=== PATIENT | female | born 1970 | race Caucasian/White ===

== ENCOUNTER → 2020-11-09 | Outpatient (CLI) | payer MEDICARE, OTHER ==
[~2020-11-09] MED LIST: IBUPROFEN600 MG PO
== END ==
LOC: CT 09:54
DX: C53.9 Malignant neoplasm of cervix uteri, unspecified (principal); K80.20 Calculus of gallbladder without cholecystitis without obstruction
CPT/HCPCS: 71260; Q9967

== ENCOUNTER → 2020-12-18 | Outpatient (CLI) | payer MEDICARE, OTHER | LOC: KOH-I 14:11 | DX: D44.0 Neoplasm of uncertain behavior of thyroid gland (principal) | CPT/HCPCS: 76536 ==

== ENCOUNTER → 2021-04-10 | Outpatient (CLI) | payer MEDICARE, OTHER | LOC: CT 08:08 | DX: C53.9 Malignant neoplasm of cervix uteri, unspecified (principal); K80.80 Other cholelithiasis without obstruction | CPT/HCPCS: 71260; Q9967 ==

== ENCOUNTER → 2021-10-05 | Day surgery (SDC) | payer MEDICARE, OTHER ==
[~2021-10-05] MED LIST changes: +SIMVASTATIN20 MG PO; +VITAMIN D350 MCG PO
== END | disposition home or self-care (01) ==
LOC: OR 07:23
PROVIDERS: Surgery
PROC: 0DJD8ZZ Inspection of Lower Intestinal Tract, Via Natural or Artificial Opening Endoscopic (ICD-10-PCS; principal; 2021-10-05 09:40)
DX: Z12.11 Encounter for screening for malignant neoplasm of colon (principal); I10 Essential (primary) hypertension; E78.5 Hyperlipidemia, unspecified; Z79.899 Other long term (current) drug therapy; Z85.41 Personal history of malignant neoplasm of cervix uteri
CPT/HCPCS: J2704